=== PATIENT | male | born 1965 | race Caucasian/White ===

== ENCOUNTER → 2016-06-17 | Day surgery (SDC) | payer OTHER ==
[~2016-06-17] VITALS: Ht 185.4 cm; Wt 90.7 kg
--- NOTE | 2016-06-17 16:18 | Operative Report ---
Operative/Inv Procedure Report Surgery Date: 06/17/16 Name of Procedure: Laparoscopic appendectomy Pre-Operative Diagnosis: Abnormal appendix noted on colonoscopy Post-Operative Diagnosis: Same Estimated Blood Loss: scant Surgeon/Director Of Student Financial Aid: DENISE TANG JR, DO Anesthesia: general endotracheal tube Monitors: Per routine Drains: None Specimens: Appendix with small portion base of cecum Microbiology: None Complications: None Condition: Good Operative Indication: Mr. Arana is a 51-year-old [place] recently had colonoscopy. During the colonoscopy tissue around the appendiceal orifice abnormal. The appendiceal base was protruding into the lumen of the cecum almost like a nipple. A biopsy was obtained and after biopsying the tissue a moderate amount of purulent drainage was expressed through the appendiceal orifice. Patient had no symptoms. CT scan of the abdomen demonstrated no acute appendix pathology. However because of this abnormal finding I felt that the appendix should be removed. Operative/Procedure Note Note: Patient was taken into the operating room placed in supine position on the operating table. Prior to induction of general anesthesia the patient received IV antibiotics. Patient underwent induction of general anesthesia placement of endo tracheal tube. At this point the left arm was tucked and the abdomen was prepped and draped in usual fashion. Using a Thomas technique we entered the abdominal cavity at the umbilical site. Quick inspection of the abdominal cavity was normal. 25 mm ports were then placed under direct visualization of the laparoscope. One port was placed in the suprapubic position and one in the left lower quadrant. The patient was placed in Trendelenburg with some left side down and the omentum was grasped. The omentum was abnormally adherent in the right lower quadrant to the appendix. Sharp dissection was used to free the omental adhesions and the omentum was then pulled out of the field. The appendix was retrocecal and twisted and appeared to have a previous inflammatory process. The fold of Treves was abnormally adherent to the appendix and the appendix was abnormally adherent to the terminal ileum. All these adhesions were freed partly by sharp dissection, partly by electrocautery and partly by blunt dissection. I divided the white line of Toldt's at the base of the cecum about one third of the way up the descending colon to better mobilize the base of the cecum and expose the appendix. At this point I was able to grasp the appendix and lifted towards the anterior abdominal wall. A window was created between the mesial appendix and the base of the appendix. A LigaSure was then used to divide the mesoappendix. At this point the base of the appendix was well exposed. An Endo VINCE stapler was used to divide this appendix with a small ring of cecal tissue. This was a 35 mm brown load. An Endobag was placed through the 12 mm port and the appendix was retrieved in the bag. The appendix was sent for routine path. I inspected the staple line which was intact and nonbleeding. There was a small amount of old blood in the right lower quadrant from dissection this was irrigated and aspirated away. There was no active bleeding and hemostasis appeared excellent. The 5 mm ports were then removed under direct visualization of the laparoscope. The umbilical port was closed with a [id number] 0 Vicryl. All skin incisions were closed with subcuticular 4-0 Monocryl and then skin glue. The patient tolerated the procedure well was exiting operating room to the recovery area in good condition. At the end of this operational needle sponges and measurements were accounted for. Discharge Disposition: PACU
== END ==
LOC: STS 04:18
DX: K38.9 Disease of appendix, unspecified (principal); K21.9 Gastro-esophageal reflux disease without esophagitis
CPT/HCPCS: 88304; J0131; J0690; J1100; J2250; J2405